=== PATIENT | female | born 1985 | race Caucasian/White ===

== ENCOUNTER 2020-10-29 12:11 | Emergency (ER) | payer SELFPAY ==
[2020-10-29] MEDS ORDERED: Ibuprofen 200 MG TAB ONE (13:43)
== END 2020-10-29 14:09 | disposition home or self-care (01) ==
LOC: ERS 12:11
DX: S90.111A Contusion of right great toe without damage to nail, initial encounter (principal); S90.121A Contusion of right lesser toe(s) without damage to nail, initial encounter; W20.8XXA Other cause of strike by thrown, projected or falling object, initial encounter